=== PATIENT | female | born 1995 | race Two or more races ===

== ENCOUNTER 2023-09-04 17:25 | Emergency (ER) | payer BC, MEDICAID ==
[~2023-09-04] VITALS: Ht 152.4 cm; Wt 40.0 kg
[~2023-09-04 17:25] MED LIST: ALPR-341 PO; DICY20TA2 MT; FOLI-43 PO; GABA-532 PO; LEVE1000 MT; LEVO-65 MT; METO5TAB2 PO; NICO-789 TP; ONDA4TAB11 PO; PANT40TA51 PO; POTA-185 PO; PROP40TA7 MT; QUET200T30 PO; RIME75TA PO; THIA100T88 MT; TRAZ-252 PO; TRAZ300T11 PO; VENL-179 PO
[2023-09-04 17:37] VITALS: O2SAT 98
[2023-09-04] MEDS: ACETAMINOPHEN 325MG TABLET PO ONE (19:19)
[2023-09-04 19:47] LABS: CLARITY URINE CLEAR (CLEAR); COLOR URINE YELLOW (YELLOW); GLUCOSE URINE NEGATIVE (NEGATIVE); KETONES URINE TRACE (NEGATIVE); LEUKOCYTE ESTERASE URINE NEGATIVE (NEGATIVE); NITRITE URINE NEGATIVE (NEGATIVE); OCCULT BLOOD URINE 1+ (NEGATIVE); PH URINE 5.5 (4.5-8.0); PROTEIN URINE 2+ (NEGATIVE); SPECIFIC GRAVITY URINE 1.019 (1.005-1.030); UROBILINOGEN URINE 0.2 E.U./dL (0.2-1.0)
[2023-09-04 20:00] LABS: BACTERIA URINE 1+; SQUAMOUS EPITHELIAL CELL URINE FEW /lpf (RARE/1+)
[2023-09-04 20:01] LABS: FINE GRANULAR CASTS URINE 0-5 /lpf; WBC URINE 0-2 /hpf (0-2)
[2023-09-04 20:04] LABS: *AMPHETAMINES SCREEN URINE NEGATIVE (NEGATIVE); *BARBITURATES SCREEN URINE NEGATIVE (NEGATIVE); *BENZODIAZEPINES SCREEN URINE NEGATIVE (NEGATIVE); *COCAINE SCREEN URINE NEGATIVE (NEGATIVE); CANNABINOID URINE SCREEN NEGATIVE (NEGATIVE); ECSTASY MDMA SCREEN URINE NEGATIVE (NEGATIVE); METHADONE URINE SCREEN Neg (NEGATIVE); OPIATES URINE SCREEN NEGATIVE (NEGATIVE); PHENCYCLIDINE URINE SCREEN NEGATIVE (NEGATIVE)
[2023-09-04 20:37] LABS: BASOPHILS % 0.1 % (0.0-2.0); EOSINOPHILS % 0.1 % (0.0-5.0); HEMATOCRIT. 37.1 % (36.0-48.0); HEMOGLOBIN. 12.5 g/dL (12.0-16.0); LYMPHOCYTES % 20.8 % (20.0-50.0); MEAN CORPUSCULAR HEMOGLOBIN 30.5 pg (28.0-32.0); MEAN CORPUSCULAR HGB CONC 33.6 g/dL (31.0-37.0); MEAN CORPUSCULAR VOLUME 90.8 fL (81.0-99.0); MEAN PLATELET VOLUME 7.9 fl (7.4-10.4); MONOCYTES % 3.5 % (2.0-8.0); NEUTROPHILS % 75.5 % (40.0-76.0); PLATELET 424 x1000/uL (130-400); RED BLOOD CELL COUNT 4.09 mill/uL (4.2-5.4); WHITE BLOOD COUNT 8.8 x1000/uL (4.5-11.0)
[2023-09-04 20:47] LABS: HCG SCREEN NEGATIVE
[2023-09-04 21:32] LABS: ACETAMINOPHEN < 2 ug/mL (10-30); ALANINE AMINOTRANSFERASE 17 IU/L (10-49); ALBUMIN 4.4 g/dL (3.2-4.8); ASPARTATE AMINOTRANSFERASE 53 IU/L (<34); BILIRUBIN TOTAL 0.3 mg/dL (0.1-1.0); CALCIUM 8.7 mg/dL (8.7-10.4); CARBON DIOXIDE 27 mEq/L (21-32); CHLORIDE 83 mEq/L (98-107); CREATININE 0.7 mg/dL (0.6-1.0); ETHANOL BLOOD 311 mg/dL (<10); GLUCOSE 76 mg/dL (70-105); POTASSIUM 3.4 mEq/L (3.5-5.1); PROTEIN TOTAL 8.2 g/dL (6.0-8.3); SODIUM 129 mEq/L (136-145); UREA NITROGEN BLOOD 29 mg/dL (9-23)
[2023-09-04] MEDS: DIPHENHYDRAMINE 25MG CAPSULE PO ONE (22:05)
[2023-09-04] MEDS: KETOROLAC 60MG/2ML VIAL IM ONE (23:29)
[2023-09-04] MEDS: ONDANSETRON 4MG ODT PO ONE (23:32)
[2023-09-05] MEDS ORDERED: CHLORDIAZEPOXIDE 25MG CAPSULE PO ONE (01:15)
[2023-09-05] MEDS: CHLORDIAZEPOXIDE 25MG CAPSULE PO NR (01:18)
[2023-09-05] MEDS: ACETAMINOPHEN 325MG TABLET PO ONE (03:17)
[2023-09-05] MEDS ORDERED: PANTOPRAZOLE SODIUM 40 MG/VIAL IV ONE (05:00)
[2023-09-05] MEDS ORDERED: METOCLOPRAMIDE HCL 10MG/2ML VIAL IV ONE (05:00)
[2023-09-05] MEDS: PANTOPRAZOLE 40MG DR TABLET PO ONE (05:18)
[2023-09-05] MEDS: GABAPENTIN 300MG CAPSULE PO ONE (05:18)
[2023-09-05] MEDS: POTASSIUM CHLORIDE 20MEQ TABLET SR PO ONE (05:18)
[2023-09-05] MEDS: METOCLOPRAMIDE HCL 10MG TABLET PO ONE (05:20)
[2023-09-05] MEDS: TRAZODONE HCL 50MG TABLET PO SCH (05:26)
[2023-09-05] MEDS: TRAZODONE HCL 50MG TABLET PO ONE (05:37)
[2023-09-05] MEDS: QUETIAPINE FUMARATE 50MG TABLET PO SCH (05:37)
[2023-09-05 13:00] VITALS: BP 114/73; RESP 16; TEMP 98.1
[2023-09-05 13:17] VITALS: PULSE 95
[2023-09-05] MEDS: KETOROLAC 15MG/ML VIAL IV ONE (13:17)
[2023-09-05] MEDS ORDERED: TRAZODONE HCL 50MG TABLET PO SCH (21:00)
== END 2023-09-05 13:52 | disposition home or self-care (01) ==
LOC: ER 17:25
DX: F10.129 Alcohol abuse with intoxication, unspecified (principal); Z88.6 Allergy status to analgesic agent; Z79.899 Other long term (current) drug therapy; Z98.890 Other specified postprocedural states; Z86.59 Personal history of other mental and behavioral disorders; Y90.8 Blood alcohol level of 240 mg/100 ml or more
CPT/HCPCS: 80053; 80305; 81003; 81025; 80307; 80329; 80320; 84703; 85025; 36415; 93005; 96372; 99285; 96374; Q0163; Q0162; J1885 ×2; J8597; G0480

== ENCOUNTER 2023-09-06 13:43 | Inpatient (IN) | payer BC, MEDICAID ==
[~2023-09-06] VITALS: Ht 157.5 cm; Wt 41.8 kg
[2023-09-06] MEDS ORDERED: NALOXONE HCL 0.4MG/ML 1ML VIAL IV PRN (14:00)
[2023-09-06] MEDS: PIPERACILLIN/TAZO 3.375G/50ML 50 ML IV ONE (14:00)
[2023-09-06] MEDS: SODIUM CHLORIDE 0.9% 1000ML BAG (SEPSIS BOLUS) IV ONE (15:00)
[2023-09-06 15:39] LABS: BASOPHILS % 0.3 % (0.0-2.0); EOSINOPHILS % 0.1 % (0.0-5.0); HEMATOCRIT. 32.2 % (36.0-48.0); HEMOGLOBIN. 11.1 g/dL (12.0-16.0); LYMPHOCYTES % 22.6 % (20.0-50.0); MEAN CORPUSCULAR HEMOGLOBIN 31.1 pg (28.0-32.0); MEAN CORPUSCULAR HGB CONC 34.6 g/dL (31.0-37.0); MEAN CORPUSCULAR VOLUME 89.8 fL (81.0-99.0); MONOCYTES % 5.1 % (2.0-8.0); NEUTROPHILS % 71.9 % (40.0-76.0); PLATELET 332 x1000/uL (130-400); RED BLOOD CELL COUNT 3.59 mill/uL (4.2-5.4); RED CELL DISTRIBUTION WIDTH 15.9 % (11.6-14.6); WHITE BLOOD COUNT 5.7 x1000/uL (4.5-11.0)
[2023-09-06 15:51] LABS: HCG SCREEN NEGATIVE
[2023-09-06 15:52] LABS: INR 1.1; PROTHROMBIN TIME 12.4 sec (9.6-11.0)
[2023-09-06] MEDS: ONDANSETRON HCL 4MG/2ML INJ IV STA (15:53)
[2023-09-06 15:54] LABS: AMMONIA 23 uMol/L (<32)
[2023-09-06 16:06] LABS: ACETAMINOPHEN < 2 ug/mL (10-30); ALANINE AMINOTRANSFERASE 27 IU/L (10-49); ALBUMIN 3.4 g/dL (3.2-4.8); ASPARTATE AMINOTRANSFERASE 61 IU/L (<34); BILIRUBIN TOTAL 0.2 mg/dL (0.1-1.0); CALCIUM 7.2 mg/dL (8.7-10.4); CARBON DIOXIDE 31 mEq/L (21-32); CHLORIDE 92 mEq/L (98-107); CREATINE KINASE 56 IU/L (34-145); CREATININE 0.5 mg/dL (0.6-1.0); GLUCOSE 82 mg/dL (70-105); POTASSIUM 2.9 mEq/L (3.5-5.1); PROTEIN TOTAL 6.3 g/dL (6.0-8.3); SODIUM 135 mEq/L (136-145); THYROID STIMULATING HORMONE 0.84 uIU/mL (0.55-4.78); UREA NITROGEN BLOOD 23 mg/dL (9-23)
[2023-09-06 16:07] LABS: TROPONIN I HIGH SENSITIVITY < 4 ng/L (3.0-34)
[2023-09-06 16:08] LABS: ETHANOL BLOOD 471 mg/dL (<10)
[2023-09-06] MEDS: SODIUM CHLORIDE 0.9% 1,000 ML IV ONE (16:15)
[2023-09-06] MEDS: ONDANSETRON HCL 4MG/2ML INJ ONE (16:37)
[2023-09-06 16:42] LABS: CLARITY URINE CLEAR (CLEAR); COLOR URINE YELLOW (YELLOW); GLUCOSE URINE NEGATIVE (NEGATIVE); KETONES URINE NEGATIVE (NEGATIVE); LEUKOCYTE ESTERASE URINE NEGATIVE (NEGATIVE); NITRITE URINE NEGATIVE (NEGATIVE); OCCULT BLOOD URINE NEGATIVE (NEGATIVE); PROTEIN URINE NEGATIVE (NEGATIVE); UROBILINOGEN URINE 0.2 E.U./dL (0.2-1.0)
[2023-09-06 16:54] LABS: *AMPHETAMINES SCREEN URINE NEGATIVE (NEGATIVE); *BARBITURATES SCREEN URINE NEGATIVE (NEGATIVE); *BENZODIAZEPINES SCREEN URINE PRESUMPTIVE POSITIVE (NEGATIVE); *COCAINE SCREEN URINE NEGATIVE (NEGATIVE); CANNABINOID URINE SCREEN NEGATIVE (NEGATIVE); ECSTASY MDMA SCREEN URINE NEGATIVE (NEGATIVE); METHADONE URINE SCREEN Neg (NEGATIVE); OPIATES URINE SCREEN NEGATIVE (NEGATIVE); PHENCYCLIDINE URINE SCREEN NEGATIVE (NEGATIVE)
[2023-09-06 16:56] LABS: BG CARBOXYHEMOGLOBIN 0.5 % (0.5-1.5); BG DEOXYHEMOGLOBIN 4.4 % (0.0-5.0); BG FRACTION INSPIRED OXYGEN 21; BG HCO3 ACT 28.7 mmol/L (22.0-26.0); BG METHEMOGLOBIN 0.2 % (0.0-1.5); BG OXYGEN SATURATION 95.6 % (92.0-98.5); BG OXYHEMOGLOBIN 94.9 % (94.0-97.0); BG PCO2 43.8 mmHg (35.0-45.0); BG PH 7.435 (7.350-7.450); BG PO2 92.9 mmHg (75.0-100.0); BG SAMPLE SITE RIGHT BRACHIAL; BG VENT MODE ROOM AIR
[2023-09-06] MEDS: KCL 20MEQ/100ML PREMIX 100 ML IV ONE ×2 (17:24→17:28)
[2023-09-06] MEDS: MAGNESIUM 2 G PREMIX 50 ML IV ONE (17:25)
[2023-09-06 18:21] LABS: TROPONIN I HIGH SENSITIVITY < 4 ng/L (3.0-34)
[2023-09-06] MEDS: METOPROLOL TARTRATE 50MG TABLET PO SCH (20:11)
[2023-09-06] MEDS: ONDANSETRON HCL 4MG/2ML INJ IV PRN (23:15)
[2023-09-06] MEDS: QUETIAPINE FUMARATE 200MG TABLET PO SCH (23:16)
[2023-09-06] MEDS: HYDROCODONE/ACETAMINOPHEN 10/325MG TABLET PO PRN (23:17)
[2023-09-06] MEDS: SODIUM CHL 0.9% + KCL 20MEQ/L 1,000 ML IV SCH (23:30)
[2023-09-06] MEDS: TRAZODONE HCL 50MG TABLET PO SCH (23:58)
[2023-09-07] VITALS (7 sets, daily range): BP systolic 96–140; BP diastolic 48–107; PULSE 74–142; RESP 16–18; TEMP 97.2–99.9
[2023-09-07] MEDS: PANTOPRAZOLE 40MG DR TABLET PO SCH (06:21)
[2023-09-07 07:28] LABS: BASOPHILS % 0.1 % (0.0-2.0); EOSINOPHILS % 0.5 % (0.0-5.0); HEMATOCRIT. 28.8 % (36.0-48.0); HEMOGLOBIN. 9.6 g/dL (12.0-16.0); LYMPHOCYTES % 39.1 % (20.0-50.0); MEAN CORPUSCULAR HEMOGLOBIN 30.5 pg (28.0-32.0); MEAN CORPUSCULAR HGB CONC 33.5 g/dL (31.0-37.0); MEAN CORPUSCULAR VOLUME 91.1 fL (81.0-99.0); MEAN PLATELET VOLUME 8.4 fl (7.4-10.4); MONOCYTES % 7.2 % (2.0-8.0); NEUTROPHILS % 53.1 % (40.0-76.0); PLATELET 249 x1000/uL (130-400); RED BLOOD CELL COUNT 3.16 mill/uL (4.2-5.4); RED CELL DISTRIBUTION WIDTH 16.1 % (11.6-14.6); WHITE BLOOD COUNT 6.3 x1000/uL (4.5-11.0)
[2023-09-07 07:33] LABS: ALANINE AMINOTRANSFERASE 23 IU/L (10-49); ALBUMIN 3.4 g/dL (3.2-4.8); ASPARTATE AMINOTRANSFERASE 51 IU/L (<34); BILIRUBIN TOTAL 0.3 mg/dL (0.1-1.0); CALCIUM 7.4 mg/dL (8.7-10.4); CARBON DIOXIDE 28 mEq/L (21-32); CHLORIDE 93 mEq/L (98-107); CREATININE 0.5 mg/dL (0.6-1.0); GLUCOSE 73 mg/dL (70-105); PROTEIN TOTAL 5.8 g/dL (6.0-8.3); SODIUM 135 mEq/L (136-145); UREA NITROGEN BLOOD 16 mg/dL (9-23)
[2023-09-07] MEDS: FOLIC ACID 1MG TABLET PO SCH (08:28)
[2023-09-07] MEDS: THIAMINE HCL 100MG TABLET PO SCH (08:29)
[2023-09-07] MEDS: POTASSIUM CHLORIDE 20MEQ TABLET SR PO NR (11:41)
[2023-09-07] MEDS: KETOROLAC 30MG/ML VIAL IV PRN (17:55)
[2023-09-07] MEDS: LEVETIRACETAM 500MG TABLET PO SCH (21:38)
[2023-09-07] MEDS: TRAZODONE HCL 50MG TABLET PO SCH (21:39)
[2023-09-07] MEDS: CHLORDIAZEPOXIDE 25MG CAPSULE PO SCH (22:52)
[2023-09-08] VITALS: BP 113/84; PULSE 115; RESP 16; TEMP 99.9
[2023-09-08 04:00] VITALS: BP 115/83; PULSE 122; RESP 18; TEMP 97.5
[2023-09-08] MEDS: VANCOMYCIN 750MG PREMIX 150 ML IV SCH ×2 (06:29→17:59)
[2023-09-08 08:00] VITALS: BP 121/92; PULSE 130; RESP 20; TEMP 98.5
[2023-09-08 11:17] LABS: BASOPHILS % 0.4 % (0.0-2.0); EOSINOPHILS % 0.5 % (0.0-5.0); HEMATOCRIT. 26.9 % (36.0-48.0); HEMOGLOBIN. 8.9 g/dL (12.0-16.0); LYMPHOCYTES % 40.9 % (20.0-50.0); MEAN CORPUSCULAR HEMOGLOBIN 30.4 pg (28.0-32.0); MEAN CORPUSCULAR HGB CONC 32.9 g/dL (31.0-37.0); MEAN CORPUSCULAR VOLUME 92.6 fL (81.0-99.0); MEAN PLATELET VOLUME 8.7 fl (7.4-10.4); MONOCYTES % 7.2 % (2.0-8.0); PLATELET 265 x1000/uL (130-400); RED BLOOD CELL COUNT 2.91 mill/uL (4.2-5.4); RED CELL DISTRIBUTION WIDTH 16.2 % (11.6-14.6); WHITE BLOOD COUNT 6.3 x1000/uL (4.5-11.0)
[2023-09-08 11:27] LABS: CALCIUM 7.8 mg/dL (8.7-10.4); CARBON DIOXIDE 28 mEq/L (21-32); CHLORIDE 100 mEq/L (98-107); CREATININE 0.6 mg/dL (0.6-1.0); GLUCOSE 126 mg/dL (70-105); POTASSIUM 3.3 mEq/L (3.5-5.1); SODIUM 137 mEq/L (136-145); UREA NITROGEN BLOOD 7 mg/dL (9-23)
[2023-09-08 12:00] VITALS: BP 111/78; PULSE 123; RESP 18; TEMP 99.1
[2023-09-08] MEDS: POTASSIUM CHLORIDE 20MEQ TABLET SR PO NR (14:47)
[2023-09-08 16:00] VITALS: BP 114/85; PULSE 125; RESP 20; TEMP 97.1
[2023-09-08 20:00] VITALS: BP_SYST 102; BP_SYST 119; BP_SYST 97; BP_DIAS 61; BP_DIAS 83; PULSE 131; PULSE 82; PULSE 96; RESP 17; RESP 18; TEMP 98; TEMP 98.4; TEMP 98.6
[2023-09-08] MEDS: QUETIAPINE FUMARATE 200MG TABLET PO SCH (20:56)
[2023-09-09] VITALS: BP 102/61; PULSE 96; RESP 17; TEMP 98.4
[2023-09-09 04:00] VITALS: BP 97/61; PULSE 82; RESP 18; TEMP 98
[2023-09-09 08:00] VITALS: BP 103/68; PULSE 121; RESP 18; TEMP 97.5
[2023-09-09] MEDS: QUETIAPINE FUMARATE 200MG TABLET PO SCH (08:58)
[2023-09-09] MEDS: ONDANSETRON HCL 4MG TABLET PO PRN (10:49)
[2023-09-09] MEDS: IBUPROFEN 600MG TABLET PO PRN (10:52)
[2023-09-09 12:00] VITALS: BP 92/62; PULSE 108; RESP 18; TEMP 97.5
[2023-09-09 16:00] VITALS: BP 96/58; PULSE 105; RESP 18; TEMP 97.7
[2023-09-09] MEDS: KETOROLAC 30MG/ML VIAL IV PRN (16:49)
[2023-09-09 20:00] VITALS: BP 103/69; PULSE 100; RESP 17; TEMP 97.6
[2023-09-10] VITALS: BP 99/66; PULSE 122; RESP 18; TEMP 97.7
[2023-09-10 03:38] LABS: CALCIUM 8.4 mg/dL (8.7-10.4); CARBON DIOXIDE 31 mEq/L (21-32); CHLORIDE 103 mEq/L (98-107); CREATININE 0.6 mg/dL (0.6-1.0); GLUCOSE 93 mg/dL (70-105); POTASSIUM 3.3 mEq/L (3.5-5.1); SODIUM 141 mEq/L (136-145); UREA NITROGEN BLOOD 6 mg/dL (9-23)
[2023-09-10 04:00] VITALS: BP 97/65; PULSE 75; RESP 16; TEMP 97.8
[2023-09-10 08:00] VITALS: BP 104/71; PULSE 120; RESP 18; TEMP 97.8
[2023-09-10] MEDS ORDERED: SODIUM CHLORIDE 0.9% 250 ML IV NR (11:00)
[2023-09-10] MEDS: POTASSIUM CHLORIDE 20MEQ/PACKET PO NR (11:21)
[2023-09-10 12:00] VITALS: BP 98/56; PULSE 104; RESP 18; TEMP 97.7
[2023-09-10 12:54] VITALS: BP 98/56; PULSE 104; TEMP 97.7; O2SAT 100
[2023-09-10] MEDS ORDERED: VANCOMYCIN 500MG PREMIX 100 ML IV SCH (21:00)
== END 2023-09-10 12:45 | DRG 91 ==
LOC: ER 13:43 → CANBEDREQ 15:51 → EDBEDREQTM 16:36 → EDBEDREQ 16:36 → 8WST 22:34
PROVIDERS: ADMIT Internal Medicine; ATTEND Internal Medicine
DX: G92.9 Unspecified toxic encephalopathy (principal); K85.90 Acute pancreatitis without necrosis or infection, unspecified; E87.1 Hypo-osmolality and hyponatremia; D64.9 Anemia, unspecified; G40.909 Epilepsy, unspecified, not intractable, without status epilepticus; F10.129 Alcohol abuse with intoxication, unspecified; E87.6 Hypokalemia; Y90.8 Blood alcohol level of 240 mg/100 ml or more; Z20.822 Contact with and (suspected) exposure to COVID-19
CPT/HCPCS: 36415; 36600; 71045; 80048; 80053; 80202; 80305; 80307; 80320; 80329; 81003; 82140; 82375; 82550; 82805; 82962; 83605; 83880; 84145; 84443; 84484; 84703; 85025; 86850; 86900; 87426; 93005; 99291; C1893; J1885; J2405; J2543; J3370; J3475; J3480; J7030; Q0162; G0480